=== PATIENT | male | born 1960 | race Caucasian/White ===

== ENCOUNTER 2016-12-23 17:52 | Emergency (ER) | payer OTHER ==
[~2016-12-23] VITALS: Ht 182.9 cm; Wt 82.1 kg
[2016-12-23] MEDS ORDERED: SODIUM CHLORIDE FLUSH 10ML SYR IVF ONE (19:00)
[2016-12-23] MEDS ORDERED: ONDANSETRON 2MG/ML, 2ML IVPush ONE (19:00)
[2016-12-23] MEDS ORDERED: MORPHINE SULFATE 4 MG/ML, 1ML IVPush PRN (19:00)
[2016-12-23] MEDS ORDERED: SODIUM CHLORIDE 0.9% 1,000ML IVBOLUS ONE (19:00)
[2016-12-23 19:20] LABS: ASPARTATE AMINO TRANSFERASE 30 U/L (15-37); BLOOD UREA NITROGEN 14 mg/dL (7-18)
[2016-12-23 19:23] LABS: HEMATOCRIT 45.9 % (39.2-51.8); HEMOGLOBIN 15.3 g/dL (13.7-18.0); WHITE BLOOD COUNT 9.8 x10^3/uL (3.4-10)
[2016-12-23] MEDS ORDERED: ASPI-621 PO (19:28)
[2016-12-23] MEDS ORDERED: OMNIPAQUE 350 MG/ML, 100ML BOTTLE ONE (20:22)
[2016-12-23] MEDS ORDERED: KETOROLAC 30 MG/1 ML ONE (21:33)
[2016-12-23] MEDS ORDERED: TAMSULOSIN 0.4 MG CAP.ER.24H ONE (21:33)
[2016-12-23] MEDS ORDERED: KETOROLAC 60 MG/2 ML IVPush ONE (22:00)
[2016-12-23] MEDS ORDERED: TAMSULOSIN 0.4 MG CAP.ER.24H PO ONE (22:00)
[2016-12-23 22:15] LABS: PATH.CAST-FLAG NOT PRESENT; SPERM-FLAG NOT PRESENT; SRC-FLAG NOT PRESENT; XTAL-FLAG NOT PRESENT; YLC-FLAG NOT PRESENT
[2016-12-23 23:44] VITALS: BP 150/90
== END 2016-12-23 23:54 | disposition home or self-care (01) ==
LOC: ED 23:48
DX: N13.2 Hydronephrosis with renal and ureteral calculous obstruction (principal); N20.1 Calculus of ureter
CPT/HCPCS: 36415; 74177; 80053; 81001; 83690; 85025; 96361; 96374; 99285; J1885; J7030; Q9967